=== PATIENT | male | born 1970 | race Caucasian/White ===

== ENCOUNTER → 2023-11-05 | Outpatient (CLI) | payer OTHER ==
[2023-11-05 19:04] LABS: Prostate Specific Antigen 0.46 ng/mL (0.000-3.500)
[2023-11-05 20:48] LABS: Urine Alcohol Negative (Negative); Urine Barbiturate Negative (Negative); Urine Cocaine Negative (Negative); Urine Methadone Negative (Negative); Urine Opiates Negative (Negative); Urine Phencyclidine Negative (Negative)
== END | disposition home or self-care (01) ==
LOC: LABWHC1 10:45
PROVIDERS: ATTEND Optometrist
DX: E29.1 Testicular hypofunction (principal); F90.2 Attention-deficit hyperactivity disorder, combined type
CPT/HCPCS: 36415; 80306; 84153; 84402; 84403

== ENCOUNTER → 2024-06-15 | Outpatient (CLI) | payer OTHER | END | disposition home or self-care (01) | LOC: LABWHC1 16:10 | PROVIDERS: ATTEND Optometrist | DX: E29.1 Testicular hypofunction (principal) | CPT/HCPCS: 36415; 84402; 84403 ==

== ENCOUNTER 2024-09-23 07:40 | Inpatient (IN) | payer OTHER ==
--- NOTE | 2024-09-23 08:07 | ED ---
General Adult HPI - General Chief complaint: Abdominal Pain Stated complaint: Abd pain Time Seen by Provider: 09/23/24 07:48 Source: patient, RN notes reviewed Mode of arrival: ambulatory Limitations: no limitations - History of Present Illness Initial comments: 54-year-old male presents to the emergency department for evaluation of abdominal pain. The patient reports that this been going on for 2 days. He states that it started more generally in the abdomen and then localized to the right lower quadrant. Patient reports severe pain in his right lower quadrant. He denies fever, chills. Denies any nausea, vomiting, diarrhea. Denies any prior abdominal surgeries. - Related Data Home Medications Medication Instructions Recorded Confirmed ALPRAZolam [Xanax] 0.125 mg PO ONETIME 09/23/24 09/23/24 Dextroamphetamine/Amphetamine 10 mg PO BID PRN 09/23/24 09/23/24 [Adderall] PARoxetine HCL 30 mg PO DAILY 09/23/24 09/23/24 buPROPion HCL [buPROPion HCL XL] 150 mg PO DAILY 09/23/24 09/23/24 Allergies Allergy/AdvReac Type Severity Reaction Status Date / Time No Known Allergies Allergy Verified 09/23/24 09:52 Review of Systems ROS Statement: Those systems with pertinent positive or pertinent negative responses have been documented in the HPI. ROS Other: All systems not noted in ROS Statement are negative. Past Medical History Past Medical History: No Reported History History of Any Multi-Drug Resistant Organisms: None Reported Past Surgical History: Orthopedic Surgery Past Psychological History: No Psychological Hx Reported Smoking Status: Vaper Past Alcohol Use History: Occasional Past Drug Use History: None Reported General Exam Limitations: no limitations General appearance: alert, in no apparent distress Head exam: Present: atraumatic, normocephalic, normal inspection Eye exam: Present: normal appearance, PERRL, EOMI. Absent: scleral icterus, conjunctival injection, periorbital swelling ENT exam: Present: normal exam, mucous membranes moist Respiratory exam: Present: normal lung sounds bilaterally. Absent: respiratory distress, wheezes, rales, rhonchi, stridor Cardiovascular Exam: Present: regular rate, normal rhythm, normal heart sounds. Absent: systolic murmur, diastolic murmur, rubs, gallop, clicks GI/Abdominal exam: Present: tenderness, guarding, hypoactive bowel sounds, other (Diffuse abdominal tenderness, right lower quadrant tenderness, positive Rovsing sign, positive McBurney's point tenderness) Neurological exam: Present: alert, oriented X3 Psychiatric exam: Present: normal affect, normal mood Skin exam: Present: warm, dry, intact, normal color. Absent: rash Course Vital Signs 09/23/24 09/23/24 09/23/24 07:43 09:50 12:03 Temperature 98.2 F Pulse Rate 91 102 H 105 H Respiratory 20 18 18 Rate Blood Pressure 124/72 121/66 114/70 O2 Sat by Pulse 97 99 98 Oximetry Medical Decision Making - Medical Decision Making Was pt. sent in by a medical professional or institution (, PA, SERVICE AND REPAIR SUPERVISOR, urgent care, hospital, or fpc...) When possible be specific @ -No Did you speak to anyone other than the patient for history (EMS, parent, family, police, friend...)? What history was obtained from this source @ -No Did you review nursing and triage notes (agree or disagree)? Why? @ -I reviewed and agree with nursing and triage notes Were old charts reviewed (outside hosp., previous admission, EMS record, old EKG, old radiological studies, urgent care reports/EKG's, fpc records)? Report findings @ -No old charts were reviewed Differential Diagnosis (chest pain, altered mental status, abdominal pain women, abdominal pain men, vaginal bleeding, weakness, fever, dyspnea, syncope, headache, dizziness, GI bleed, back pain, seizure, CVA, palpatations, mental health, musculoskeletal)? @ -Differential Abdominal Pain Men: Appendicitis, cholecystitis, diverticulosis, ischemic bowel, pancreatitis, hepatitis, UTI, gastroenteritis, AAA, incarcerated hernia, bowel obstruction, constipation, inflammatory bowel, hepatitis, peptic ulcer disease, splenic infarction, perforated viscus, testicular torsion, this is not meant to be an all-inclusive list EKG interpreted by me (3pts min.). @ -EKG at 811 shows sinus rhythm rate 93, WI 120, QRS 80, QTQTc [id number] X-rays interpreted by me (1pt min.). @ -None done CT interpreted by me (1pt min.). @ -CT abdomen pelvis shows acute appendicitis with surrounding fluid and gas consistent with perforation, no organized abscess U/S interpreted by me (1pt. min.). @ -None done What testing was considered but not performed or refused? (CT, X-rays, U/S, labs)? Why? @ -None What meds were considered but not given or refused? Why? @ -None Did you discuss the management of the patient with other professionals (professionals i.e. , PA, SERVICE AND REPAIR SUPERVISOR, lab, RT, psych nurse, aids social worker, slackman, teacher, search and rescue officer, case aide)? Give summary @ -Case discussed with radiology who reported critical read of acute ruptured appendicitis Case discussed with Dr. Adrian who is accepting of the admission Was smoking cessation discussed for >3mins.? @ -No Was critical care preformed (if so, how long)? @ -No Were there social determinants of health that impacted care today? How? (Homele ssness, low income, unemployed, alcoholism, drug addiction, transportation, low edu. Level, literacy, decrease access to med. care, custodial, rehab)? @ -No Was there de-escalation of care discussed even if they declined (Discuss DNR or withdrawal of care, Hospice)? DNR status @ -No What co-morbidities impacted this encounter? (DM, HTN, Smoking, COPD, CAD, Cancer, CVA, ARF, Chemo, Hep., AIDS, mental health diagnosis, sleep apnea, morbid obesity)? @ -None Was patient admitted / discharged? Hospital course, mention meds given and route, prescriptions, significant lab abnormalities, going to OR and other pertinent info. @ -Admitted. Patient presented the emergency department for evaluation of a bdominal pain. Vital signs stable. Laboratory studies show leukocytosis at 16. No significant lactic acidosis. Patient was provided IV fluid hydration in the ED along with medication for pain control. Patient underwent CT scan of the abdomen pelvis reveals a acute appendicitis with surrounding fluid and gas consistent with perforation with no organized abscess formation. Blood cultures obtained. Patient started on Zosyn. Patient will be admitted to surgery, Dr. Adrian who is accepting of the admission. Case discussed with Dr. Henry Undiagnosed new problem with uncertain prognosis? @ -No Drug Therapy requiring intensive monitoring for toxicity (Heparin, Nitro, Insulin, Cardizem)? @ -No Were any procedures done? @ -No Diagnosis/symptom? @ -Ruptured appendicitis Acute, or Chronic, or Acute on Chronic? @ -Acute Uncomplicated (without systemic symptoms) or Complicated (systemic symptoms)? @ -Complicated Side effects of treatment? @ -No Exacerbation, Progression, or Severe Exacerbation? @ -No Poses a threat to life or bodily function? How? (Chest pain, USA, MS, pneumonia, PE, COPD, DKA, ARF, appy, cholecystitis, CVA, Diverticulitis, Homicidal, Suicidal, threat to staff... and all critical care pts) @ -Moderate appendicitis - Lab Data Result diagrams: 09/23/24 08:06 09/23/24 08:06 Lab Results 09/23/24 09/23/24 09/23/24 Range/Units 08:06 08:06 08:06 WBC 16.1 H (3.8-10.6) k/uL RBC 5.13 (4.30-5.90) m/uL Hgb 16.8 (13.0-17.5) gm/dL Hct 48.9 (39.0-53.0) % MCV 95.2 (80.0-100.0) fL MCH 32.8 (25.0-35.0) pg MCHC 34.5 (31.0-37.0) g/dL RDW 12.1 (11.5-15.5) % Plt Count 244 (150-450) k/uL MPV 7.9 Neutrophils % 86 % Lymphocytes % 6 % Monocytes % 5 % Eosinophils % 1 % Basophils % 0 % Neutrophils # 13.8 H (1.3-7.7) k/uL Lymphocytes # 1.0 (1.0-4.8) k/uL Monocytes # 0.8 (0-1.0) k/uL Eosinophils # 0.2 (0-0.7) k/uL Basophils # 0.1 (0-0.2) k/uL Sodium 132 L (137-145) mmol/L Potassium 4.7 (3.5-5.1) mmol/L Chloride 98 (98-107) mmol/L Carbon Dioxide 18 L (22-30) mmol/L Anion Gap 16 mmol/L BUN 13 (9-20) mg/dL Creatinine 1.15 (0.66-1.25) mg/dL Est GFR (CKD-EPI)AfAm 84 (>60 ml/min/1.73 sqM) Est GFR (CKD-EPI)NonAf 72 (>60 ml/min/1.73 sqM) Glucose 162 H (74-99) mg/dL Plasma Lactic Acid Jae 1.5 (0.7-2.0) mmol/L Calcium 9.5 (8.4-10.2) mg/dL Total Bilirubin 1.5 H (0.2-1.3) mg/dL AST 26 (17-59) U/L ALT 27 (4-49) U/L Alkaline Phosphatase 59 (38-126) U/L Total Protein 7.4 (6.3-8.2) g/dL Albumin 5.0 (3.5-5.0) g/dL Amylase 41 (30-110) U/L Lipase 40 (23-300) U/L Disposition Clinical Impression: Ruptured appendicitis Disposition: ADMITTED IP TO THIS HOSP Condition: Stable Is patient prescribed a controlled substance at d/c from ED?: No
[2024-09-23] MEDS: SODIUM CHLORIDE 0.9% 1,000 ML IV STA (08:09)
[2024-09-23] MEDS: HYDROmorphone 0.5 MG/0.5 ML SYRINGE IVP STA (08:09)
[2024-09-23 08:12] LABS: Basophils # (A) 0.1 k/uL (0-0.2); Basophils % (A) 0 %; Eosinophils # (A) 0.2 k/uL (0-0.7); Eosinophils % (A) 1 %; HCT 48.9 % (39.0-53.0); HGB 16.8 gm/dL (13.0-17.5); Lymphocytes % (A) 6 %; MCH 32.8 pg (25.0-35.0); MCHC 34.5 g/dL (31.0-37.0); MCV 95.2 fL (80.0-100.0); Mean Platelet Volume 7.9; Monocytes # (A) 0.8 k/uL (0-1.0); Monocytes % (A) 5 %; Neutrophils # (A) 13.8 k/uL (1.3-7.7); Neutrophils % (A) 86 %; Platelet Count 244 k/uL (150-450); RBC 5.13 m/uL (4.30-5.90); RDW 12.1 % (11.5-15.5); WBC 16.1 k/uL (3.8-10.6)
[2024-09-23] MEDS: ONDANSETRON 4 MG/2 ML VIAL IVP STA (08:13)
[2024-09-23 08:25] LABS: ALT 27 U/L (4-49); African American GFR (CKD) 84 (>60 ml/min/1.73 sqM); Amylase 41 U/L (30-110); Anion Gap 16 mmol/L; Blood Urea Nitrogen 13 mg/dL (9-20); Calcium 9.5 mg/dL (8.4-10.2); Carbon Dioxide 18 mmol/L (22-30); Chloride 98 mmol/L (98-107); Glucose 162 mg/dL (74-99); Lipase 40 U/L (23-300); Non-African American GFR(CKD) 72 (>60 ml/min/1.73 sqM); Sodium 132 mmol/L (137-145); Total Bilirubin 1.5 mg/dL (0.2-1.3); Total Protein 7.4 g/dL (6.3-8.2)
[2024-09-23 08:42] LABS: AST 26 U/L (17-59); Alkaline Phosphatase 59 U/L (38-126); Potassium 4.7 mmol/L (3.5-5.1)
--- NOTE | 2024-09-23 09:32 | CT ---
EXAMINATION TYPE: CT abdomen pelvis w con CT DLP: 1162 mGycm, Automated exposure control for dose reduction was used. DATE OF EXAM: 09/23/2024 9:19 AM COMPARISON: None CLINICAL INDICATION:Male, 54 years old with history of RLQ pain; RLQ pain x2 days. TECHNIQUE: Standard CT of the abdomen and pelvis following the administration of 100 cc of Isovue 3 00 IV contrast material. Coronal and sagittal reformats were performed. FINDINGS: LOWER CHEST: Posterior dependent subsegmental atelectasis is noted. ABDOMEN LIVER: Unremarkable GALLBLADDER AND BILE DUCTS: Unremarkable. PANCREAS: Unremarkable. SPLEEN: Unremarkable. ADRENAL GLANDS: Unremarkable. KIDNEYS AND URETERS: No evidence of hydronephrosis or renal calculus. The kidneys enhance symmetrical ly. Contrast is demonstrated within both collecting systems on the delayed phase. PELVIS BLADDER: Unremarkable REPRODUCTIVE: Unremarkable. ABDOMEN & PELVIS STOMACH AND BOWEL/PERITONEUM: Stomach and duodenum are unremarkable. Distal colonic diverticulosis wi thout evidence for acute diverticulitis. Dilated appendix measuring up to 1.6 cm with surrounding inf lammatory changes and fluid tracking along the right paracolic gutter. No organized fluid collection to suggest abscess. There are a couple foci of extraluminal gas within the right lower quadrant. No d istinct appendicolith identified. No evidence of bowel obstruction. Prominent fluid-filled ascending colon. VASCULATURE: No evidence of aortic aneurysm. MUSCULOSKELETAL: No acute osseous abnormalities LYMPH NODES: No evidence for lymphadenopathy. SOFT TISSUE/ABDOMINAL WALL: Unremarkable IMPRESSION: Acute appendicitis with surrounding fluid and gas consistent with perforation. No organized abscess. Findings called to and discussed with YASMANY Cisneros at 9:29 AM on 09/23/2024. [facility], , 09/23/2024 9:30 AM
[2024-09-23] MEDS ORDERED: NALOXONE 0.4 MG/ML 1 ML VIAL IV PRN ×2 (09:43→19:37)
[2024-09-23] MEDS: SODIUM CHLORIDE 0.9% 1,000 ML IV ONE ×2 (09:45→20:15)
[2024-09-23] MEDS: HYDROmorphone 1 MG/ML 1 ML SYRINGE IVP STA ×2 (09:45→10:11)
[2024-09-23] MEDS: PIPERACILLIN-TAZOBACTAM 3.375 GM in SODIUM CHLORIDE 0.9% 100 ML IVPB STA (09:47)
[2024-09-23] MEDS: SODIUM CHLORIDE 0.9% 1,000 ML IV SCH (09:50)
--- NOTE | 2024-09-23 11:21 | P.GSHP ---
History of Present Illness H&P Date: 09/23/24 CHIEF COMPLAINT: Abdominal pain HISTORY OF PRESENT ILLNESS: This is a 54-year-old male who presented to the hospital with complaints of abdominal pain that started 2 days ago. Patient reports that his whole abdomen had been hurting and then it moved down into the right lower quadrant. However patient has had bursts of pain across the abdomen. He has been nauseated. He denies any vomiting. He has felt feverish. He had a CT scan abdomen and pelvis completed that reported acute appendicitis with surrounding fluid and gas consistent with perforation. No organized abscess. He has been mildly tachycardic. He denies any prior abdominal surgeries. PAST MEDICAL HISTORY: Hyperlipidemia PAST SURGICAL HISTORY: See list. MEDICATIONS: See list. ALLERGIES: See list. SOCIAL HISTORY: No illicit drug use. He does vape. Occasional alcohol use. REVIEW OF SYSTEMS: CONSTITUTIONAL: Denies fever or chills. HEENT: Denies blurred vision, vision changes, or eye pain. Denies hemoptysis ENDOCRINE: Denies heat or cold intolerance. CARDIOVASCULAR: Denies chest pain or pressure. RESPIRATORY: No shortness of breath. GASTROINTESTINAL: Please refer to HPI otherwise unremarkable NEURO: Denies history of seizures. PSYCH: No depression or suicidal ideation HEMATOLOGIC: Denies bleeding disorders. LYMPHATIC: The patient denies any lumps and bumps around the neck. GENITOURINARY: Denies any blood in urine or increased urinary frequency. MUSCULOSKELETAL: Denies myalgias. Denies joint swelling. Denies decreased range of motion beyond patients baseline. SKIN: Denies pruitis. Denies rash. PHYSICAL EXAM: VITAL SIGNS: Reviewed GENERAL: Well-developed in no acute distress. HEENT: No sclera icterus. Extraocular movements grossly intact. Moist buccal mucosa. Head is atraumatic, normocephalic. Hears conversational speech. No nasal drainage. NECK: Supple without lymphadenopathy. CHEST: Non-labored respirations and equal bilateral excursions. CARDIOVASCULAR: Palpable 2+ radial pulses. ABDOMEN: Soft. Nondistended. Patient is tender with palpation of the right lower quadrant. Guarding is present. Evidence of peritonitis. Pain with movement of the bed. MUSCULOSKELETAL: No clubbing or cyanosis. NEUROLOGIC: No focal or lateralizing signs. Cranial nerves II through XII grossly intact. PSYCH: Appropriate affect. Alert and oriented to person, place and time. SKIN: Well perfused. Good skin turgor. LABORATORY DATA: WBC is 16.1 Hgb 16.8 platelets 244 Sodium 132 potassium is 4.7 creatinine 1.15 Lactic acid 1.5 Total bilirubin 1.5 AST 26 ALT 27 alk phos 59 lipase 40 IMAGING: CT scan abdomen pelvis reports acute appendicitis with surrounding fluid and gas consistent with perforation. No abscess ASSESSMENT: 1. Acute appendicitis with perforation PLAN: -Patient scheduled for Robotic appendectomy today with Dr. Adrina -Keep patient n.p.o. -Continue IV antibiotics -Continue pain management. IV Tylenol added. -Continue IV fluids Physician Handmade Tile Artist note has been reviewed by physician. Signing provider agrees with the documented findings, assessment, and plan of care. Past Medical History Past Medical History: No Reported History History of Any Multi-Drug Resistant Organisms: None Reported Past Surgical History: Orthopedic Surgery Past Psychological History: No Psychological Hx Reported Smoking Status: Vaper Past Alcohol Use History: Occasional Past Drug Use History: None Reported Medications and Allergies Home Medications Medication Instructions Recorded Confirmed Type ALPRAZolam [Xanax] 0.125 mg PO ONETIME 09/23/24 09/23/24 History Dextroamphetamine/Amphetamine 10 mg PO BID PRN 09/23/24 09/23/24 History [Adderall] PARoxetine HCL 30 mg PO DAILY 09/23/24 09/23/24 History buPROPion HCL [buPROPion HCL XL] 150 mg PO DAILY 09/23/24 09/23/24 History Allergies Allergy/AdvReac Type Severity Reaction Status Date / Time No Known Allergies Allergy Verified 09/23/24 09:52 Surgical - Exam Vital Signs Temp Pulse Resp BP Pulse Ox 98.2 F 91 20 124/72 97 09/23/24 07:43 09/23/24 07:43 09/23/24 07:43 09/23/24 07:43 09/23/24 07:43 Results - Labs 09/23/24 08:06 09/23/24 08:06 Abnormal Lab Results - Last 24 Hours (Table) 09/23/24 09/23/24 Range/Units 08:06 08:06 WBC 16.1 H (3.8-10.6) k/uL Neutrophils # 13.8 H (1.3-7.7) k/uL Sodium 132 L (137-145) mmol/L Carbon Dioxide 18 L (22-30) mmol/L Glucose 162 H (74-99) mg/dL Total Bilirubin 1.5 H (0.2-1.3) mg/dL Diabetes panel 09/23/24 Range/Units 08:06 Sodium 132 L (137-145) mmol/L Potassium 4.7 (3.5-5.1) mmol/L Chloride 98 (98-107) mmol/L Carbon Dioxide 18 L (22-30) mmol/L BUN 13 (9-20) mg/dL Creatinine 1.15 (0.66-1.25) mg/dL Glucose 162 H (74-99) mg/dL Calcium 9.5 (8.4-10.2) mg/dL AST 26 (17-59) U/L ALT 27 (4-49) U/L Alkaline Phosphatase 59 (38-126) U/L Total Protein 7.4 (6.3-8.2) g/dL Albumin 5.0 (3.5-5.0) g/dL Calcium panel 09/23/24 Range/Units 08:06 Calcium 9.5 (8.4-10.2) mg/dL Albumin 5.0 (3.5-5.0) g/dL Pituitary panel 09/23/24 Range/Units 08:06 Sodium 132 L (137-145) mmol/L Potassium 4.7 (3.5-5.1) mmol/L Chloride 98 (98-107) mmol/L Carbon Dioxide 18 L (22-30) mmol/L BUN 13 (9-20) mg/dL Creatinine 1.15 (0.66-1.25) mg/dL Glucose 162 H (74-99) mg/dL Calcium 9.5 (8.4-10.2) mg/dL Adrenal panel 09/23/24 Range/Units 08:06 Sodium 132 L (137-145) mmol/L Potassium 4.7 (3.5-5.1) mmol/L Chloride 98 (98-107) mmol/L Carbon Dioxide 18 L (22-30) mmol/L BUN 13 (9-20) mg/dL Creatinine 1.15 (0.66-1.25) mg/dL Glucose 162 H (74-99) mg/dL Calcium 9.5 (8.4-10.2) mg/dL Total Bilirubin 1.5 H (0.2-1.3) mg/dL AST 26 (17-59) U/L ALT 27 (4-49) U/L Alkaline Phosphatase 59 (38-126) U/L Total Protein 7.4 (6.3-8.2) g/dL Albumin 5.0 (3.5-5.0) g/dL
[2024-09-23] MEDS ORDERED: ACETAMINOPHEN IV (For NPO) 1,000 MG in EMPTY BAG 1 BAG IVPB SCH (11:30)
[2024-09-23] MEDS: KETOROLAC 15 MG/ML 1 ML VIAL IVP PRN (11:34)
[2024-09-23] MEDS ORDERED: KETOROLAC 15 MG/ML 1 ML VIAL IVP SCH (12:00)
[2024-09-23] MEDS: ACETAMINOPHEN IV (For NPO) 1,000 MG in EMPTY BAG 1 BAG IVPB SCH (12:01)
[2024-09-23] MEDS: HYDROmorphone 1 MG/ML 1 ML SYRINGE IVP PRN (14:20)
[2024-09-23] MEDS: PIPERACILLIN-TAZOBACTAM 3.375 GM in SODIUM CHLORIDE 0.9% 100 ML IVPB SCH (16:16)
[2024-09-23] MEDS: HYDROmorphone 0.5 MG/0.5 ML SYRINGE IVP PRN (16:17)
[2024-09-23] MEDS: fentaNYL (PF) 50 MCG/ML 2 ML AMP IVP PRN (17:46)
[2024-09-23] MEDS: HEPARIN SODIUM,PORCINE 5,000 UNIT/ML 1 ML VIAL SQ STA (17:47)
[2024-09-23] MEDS: ONDANSETRON 4 MG/2 ML VIAL IVP PRN (17:47)
[2024-09-23] MEDS: DEXAMETHASONE SOD PHOSPHATE 4 MG/ML 1 ML VIAL IVP STA (17:47)
[2024-09-23] MEDS ORDERED: ROCURONIUM 10 MG/ML (5 ML VIAL) IV ONE (17:48)
[2024-09-23] MEDS ORDERED: PHENYLEPHRINE 10 MG/ML VIAL ONE (17:48)
[2024-09-23] MEDS ORDERED: KETAMINE HCL IN 0.9 % NACL 50 MG/5 ML SYRINGE ONE (17:48)
[2024-09-23] MEDS ORDERED: ceFAZolin 1 GM/50 ML BAG (PMX) ONE (17:48)
[2024-09-23] MEDS ORDERED: PROPOFOL 10 MG/ML 20 ML VIAL IV ONE (17:48)
[2024-09-23] MEDS ORDERED: GLYCOPYRROLATE 0.2 MG/ML 2 ML VIAL ONE (17:48)
[2024-09-23] MEDS ORDERED: NEOSTIGMINE 1 MG/ML 10 ML VIAL ONE (17:48)
[2024-09-23] MEDS ORDERED: SUCCINYLCHOLINE CHLORIDE 200 MG/10 ML VIAL IV ONE (17:48)
[2024-09-23] MEDS ORDERED: fentaNYL (PF) 50 MCG/ML 2 ML AMP ONE (17:48)
[2024-09-23] MEDS ORDERED: HYDROmorphone (PF) 1 MG/ML ONE (17:48)
[2024-09-23] MEDS ORDERED: LIDOCAINE 1% INJ 10MG/ML (20 ML MDV) ONE (17:48)
--- NOTE | 2024-09-23 17:50 | P.HPADDEND ---
H&P Addendum H&P Addendum Date: 09/23/24 Patient presents with fever, sepsis, peritonitis from ruptured appendicitis. Inpatient hospitalization only 7 days described. Robotic appendectomy described with placement of drains. Patient made aware that if phlegmon present, abdominal washout with placement of drains will be performed with interval appendectomy at a later time. Emergent robotic laparoscopy/appendectomy reviewed with benefits and risks.
[2024-09-23] MEDS: LACTATED RINGERS 1,000 ML IV ONE ×2 (17:51→18:27)
[2024-09-23] MEDS: SODIUM CHLORIDE 0.9% 100 ML with ceFAZolin 2,000 MG IV ONE (17:52)
[2024-09-23] MEDS: LIDOCAINE 1%-EPI 1:100,000 20 ML VIAL SQ ONE (18:24)
--- NOTE | 2024-09-23 19:45 | P.OP ---
Date of Procedure: 09/23/24 Description of Procedure: SURGEON: LES ORTEGA MD Preoperative Diagnosis: 1. Ruptured appendicitis Postoperative Diagnosis: 1. Gangrenous ruptured appendicitis with appendiceal abscess Procedure(s) Performed: 1. Robotic-assisted daVinci Xi laparoscopic lysis of adhesions over 1 hr 2. Robotic-assisted daVinci Xi laparoscopic appendectomy with drainage of periappendiceal abscess 3. Placement of EUGENE drain #19 right lower quadrant/pelvis 4. Peritoneal lavage 2000 mL normal saline Anesthesia: GETA, local Estimated Blood Loss (ml): 5 Pathology: other (appendix, aerobic and anerobic culture of peritoneal fluid from peritonitis) Condition: stable Disposition: floor Operative Findings: 1. Localized abscess over 5-mL drained right lower quadrant 2. Gangrenous ruptured purulent appendicitis including base of appendix 3. Abdomen irrigated with 2000-mL normal saline 4. EUGENE drain placed at right lower quadrant of abscess pocket drained 5. Appendix resected at base 6. Staple line hemostatic INDICATIONS: The patient is a 54-year-old female who presents with acute appendicitis including fevers and peritonitis consistent with sepsis. Surgical intervention was described in detail. Patient requested robotic-assisted technique. Benefits and risks, including infection, open surgery, and possibility for additional surgery was discussed at length. Informed consent was obtained. All questions of the patient and family were answered. DESCRIPTION: The patient was transferred to the operating room and placed in supine position. The patient had previously voided. The abdomen was then prepped and draped in standard sterile fashion as Ioban was placed along the abdomen to minimize any contamination of skin floor. After a timeout protocol was performed, attention was then brought to the left upper quadrant whereby a 0 degree 5 mm laparoscopic trocar entry was performed. The abdominal cavity was entered and insufflated to 15 mmHg pressure, which was tolerated well. Diagnostic laparoscopy demonstrated no injury to bowel, viscera or mesentery. Adhesions were confirmed of the right lower quadrant of omentum, small bowel to the abdominal wall. Localized abscess was found. Next a robotic 12-mm trocar was placed along the left upper quadrant after exchanging the 5 mm trocar. A 8 mm port was placed along the left lower quadrant and another 8-mm port left lateral abdominal wall. Ports were placed 10 cm apart from each other including 15-20 cm away from the target anatomy of the right pelvis. The patient was then placed in Trendelenburg position, at least 7 and right side up at least 7. The robotic da Jeramie XI system was primed and docked from the left side of the patient. Using atraumatic graspers and vessel sealer, the robotic system was docked and primed as described. Instruments were interchanged by the expanded function dental assistant including graspers, robotic stapler and vessel sealer. Next, attention was brought to identify the cecum. A systematic view within the abdominal cavity was started with the small bowel which was remarkable for diffuse fibrinous exudate throughout the pelvis. The base of the cecum was with inflammation and ischemia. The appendix was ruptured near the base with moderate dissection performed. The abscess of 20-mL was aspirated from the abdomen. Extensive lysis of adhesions over 1 hour was used to dissect the appendix from surrounding tissues including along the base of the cecum. Multiple 45 mm blue/green robotic staple loads were fired along the base of the appendix and incorporating the superior portion of the cecum avoiding the ileocecal valve. The staple line was hemostatic and viable. Hemostasis was checked prior to undocking the robot. The abdomen was irrigated with 2000 mL normal saline to the aspirant was clear. At the right pelvis, a suspended round ligament creating an internal hernia was identified and divided. The robot was undocked. I re-scrubbed into the case. A round #19 drain was placed via the left lower quadrant port and positioned at the right lower quadrant and pelvis. A drain stitch 2-0 nylon was placed with the bulb attached separately. The specimen was removed from the abdominal cavity with an Endo Catch bag through the 12 mm trocar at the left upper quadrant. All instruments and pneumoperitoneum were evacuated from the abdominal cavity. Local anesthetic was infiltrated to all wounds for postop analgesia. All incisions were also cleansed with diluted hydrogen peroxide. An Optifoam surgical dressing was placed over all port sites including drain site as she has elevated risk for infection. The patient had tolerated the procedure well. The patient was extubated successfully. The patient was transferred to the postanesthesia care unit in stable condition. Perforated appendicitis at base resected with 45 mm blue load x 2. Localized peritonitis. Sepsis with fever 103, tachycardia, peritonitis. EUGENE drain right lower quadrant
--- NOTE | 2024-09-23 19:54 | P.PN ---
Progress Note - Text Progress Note Date: 09/23/24 Patient Sister Viridiana Keith notified after surgery including length of stay in the hospital anticipated average 7 days. Findings of perforated appendicitis with sepsis also reviewed. Questions addressed.
[2024-09-23] MEDS: SODIUM CHLORIDE 0.9% 2,000 ML IV ONE (20:13)
[2024-09-23] MEDS: ONDANSETRON 4 MG/2 ML VIAL IVP SCH (22:41)
[2024-09-23] MEDS: HEPARIN SODIUM,PORCINE 5,000 UNIT/ML 1 ML VIAL SQ SCH (22:41)
[2024-09-24] MEDS: fentaNYL PCA 500 MCG/50 ML BAG IV SCH (04:30)
[2024-09-24] MEDS: METOCLOPRAMIDE 5 MG/ML 2 ML VIAL IVP PRN (06:28)
[2024-09-24 12:28] LABS: ALT 21 U/L (10-49); AST 25 U/L (14-35); Albumin 3.7 g/dL (3.8-4.9); Albumin/Globulin Ratio 2.06 Ratio (1.60-3.17); Alkaline Phosphatase 50 U/L (41-126); BUN/Creat Ratio 11.91 Ratio (12.00-20.00); Blood Urea Nitrogen 13.1 mg/dL (9.0-27.0); Calcium 8.1 mg/dL (8.7-10.3); Carbon Dioxide 20.5 mmol/L (21.6-31.8); Chloride 106 mmol/L (96-109); Globulin 1.8 g/dL (1.6-3.3); Glucose 159 mg/dL (70-110); Potassium 4.7 mmol/L (3.5-5.5); Sodium 138 mmol/L (135-145); Total Bilirubin 0.6 mg/dL (0.3-1.2); Total Protein 5.5 g/dL (6.2-8.2)
--- NOTE | 2024-09-24 15:37 | P.PN ---
Subjective Progress Note Date: 09/24/24 CHIEF COMPLAINT: Acute appendicitis, ruptured with sepsis HISTORY OF PRESENT ILLNESS: The patient is a 54-year-old male admitted for sepsis due to ruptured appendicitis. Patient had peritonitis. He had fevers. Fever curve has improved. He reports gaseous distention. Abdominal pain moderately proved since surgery. ROS: No reports of nausea and vomiting. No bowel movements. Resolved fevers or chills. No new chest pain. No productive sputum PHYSICAL EXAM: VITAL SIGNS: Reviewed CONSTITUTIONAL: Well developed and in no acute distress. EYES: Conjuctivae without sclera icterus. Extraocular movements grossly intact. HEAD, EARS, NOSE, THROAT: Moist buccal mucosa. Head is atraumatic, nor mocephalic. Hears conversational speech. No nasal drainage. RESPIRATORY: Non-labored respirations and equal bilateral excursions. CARDIOVASCULAR: Palpable 2+ radial pulses. ABDOMEN: Incision intact. EUGENE serosanguineous. MUSCULOSKELETAL: No gross deformity of the lower extremities noted. No clu bbing. No cyanosis. SKIN: Good skin turgor. Well perfused. NEUROLOGIC: Cranial nerves II through XII grossly intact. No focal or lateralizing signs. PSYCH: Appropriate affect. Alert and oriented to person, place and time. CLINICAL LABS: Reviewed. WBC pending. Creatinine normal. Blood sugar glucose elevated 150s. ASSESSMENT: 1. Sepsis due to ruptured perforated appendicitis 2. Depressive disorder PLAN: 1. Continue Jama-Robertson drain until minimal output less than 30 cc daily 2. Due to complex presentation of sepsis with perforated appendicitis and peritonitis, infectious ease consultation obtained. 3. Inpatient admission anticipated for 7 to 10 days. 4. Will resume home medications. 5. Patient advised to ambulate 4 times daily to decrease risk for pneumonia 6. Incentive spirometer ordered 7. Decrease IV fluids to KVO Objective - Vital Signs Vital signs: Vital Signs Temp 98.4 F 09/24/24 13:35 Pulse 97 09/24/24 13:35 Resp 20 09/24/24 13:35 BP 125/73 09/24/24 13:35 Pulse Ox 94 L 09/24/24 13:35 FiO2 Intake & Output 09/23/24 09/24/24 09/24/24 18:59 06:59 18:59 Intake Total 1800 790 440 Output Total 2430 440 Balance 1800 -1640 0 Weight 88.451 kg 88.451 kg Intake: IV 1800 250 Intake, IV Titration 100 Amount Piperacillin-Tazobactam 3 100 .375 gm In Sodium Chloride 0.9% 100 ml @ 25 mls/hr IVPB Q8HR [facility] Rx# :[id number] Oral 540 340 Output: Drainage 75 40 Left Abdomen 75 40 Urine 2350 400 Uretheral (Kinney) 400 Estimated Blood Loss 5 Other: Voiding Method Indwelling Catheter Indwelling Catheter - Labs CBC & Chem 7: 09/23/24 08:06 09/24/24 03:25 Labs: Abnormal Lab Results - Last 24 Hours (Table) 09/24/24 Range/Units 03:25 Carbon Dioxide 20.5 L (21.6-31.8) mmol/L BUN/Creatinine Ratio 11.91 L (12.00-20.00) Ratio Glucose 159 H (70-110) mg/dL Calcium 8.1 L (8.7-10.3) mg/dL Total Protein 5.5 L (6.2-8.2) g/dL Albumin 3.7 L (3.8-4.9) g/dL Microbiology - Last 24 Hours (Table) 09/23/24 19:25 Gram Stain - Preliminary Appendix
[2024-09-24] MEDS: SIMETHICONE 80 MG CHEWABLE PO SCH (16:15)
[2024-09-24] MEDS: PARoxetine 10 MG TAB PO SCH (16:15)
[2024-09-24] MEDS: buPROPion XL 150 MG TAB.ER.24H PO SCH (16:15)
[2024-09-25 09:17] LABS: Basophils # (A) 0.01 X 10*3/uL (0.00-0.10); Basophils % (A) 0.1 %; Eosinophils # (A) 0.03 X 10*3/uL (0.04-0.35); Eosinophils % (A) 0.3 %; HCT 40.7 % (39.6-50.0); HGB 13.2 g/dL (13.0-17.0); Lymphocytes # (A) 0.75 X 10*3/uL (0.90-5.00); Lymphocytes % (A) 7.6 %; MCH 31.8 pg (27.0-32.0); MCHC 32.4 g/dL (32.0-37.0); MCV 98.1 FL (80.0-97.0); Mean Platelet Volume 11.2 FL (9.5-12.2); Monocytes # (A) 0.62 X 10*3/uL (0.20-1.00); Monocytes % (A) 6.3 %; NRBC Per 100 WBC 0 X 10*3/uL (0.00-0.01); Neutrophils # (A) 8.42 X 10*3/uL (1.80-7.70); Neutrophils % (A) 85.4 %; Platelet Count 172 X 10*3/uL (140-440); RBC 4.15 X 10*6/uL (4.40-5.60); RDW 12.3 % (11.5-14.5); WBC 9.86 X 10*3/uL (4.50-10.00)
--- NOTE | 2024-09-25 09:20 | P.CONS ---
History of Present Illness - Reason for Consult Consult date: 09/24/24 Sepsis, ruptured appendicitis Requesting physician: Belinda Adrian - Chief Complaint Abdominal pain x few days - History of Present Illness Patient is a 54-year-old man with no significant past medical history presenting to the hospital for evaluation of abdominal pain this started about 3 days before presentation to hospital, the patient pain was mostly generalized throughout his abdomen but subsequent open localized to the right lower quadrant area patient was describing the pain to be sharp almost 10 out of 10 without radiation with associated nausea but no vomiting denies any diarrhea no other constipation and no urinary symptoms on presentation to the hospital patient was running a temperature of 103.3 F patient was tachycardic but not hypotensive or hypoxic no need for supplemental oxygen he did have white count of 16.1 to the left shift creatinine is 1.15 liver isms are normal except a bilirubin of 1.5 patient did have abdominal pelvis CT that has been suggestive of acute appendicitis with surrounding fluid and gas consistent with perforation patient was taken to the OR and the patient status post laparoscopic lysis of adhesion appendectomy drainage of the periappendiceal abscess patient did have operative finding of gangrenous ruptured appendicitis with appendiceal abscess patient was started on Zosyn infectious disease was consulted for further management of antibiotic therapy Review of Systems Positive point and negatives has been mentioned in the HPI, complete review of systems was performed and all other systems are negative Past Medical History Past Medical History: No Reported History History of Any Multi-Drug Resistant Organisms: None Reported Past Surgical History: Orthopedic Surgery Additional Past Surgical History / Comment(s): oral surgery Past Anesthesia/Blood Transfusion Reactions: No Reported Reaction Past Psychological History: No Psychological Hx Reported Smoking Status: Former smoker, Vaper Past Alcohol Use History: Occasional Past Drug Use History: None Reported Medications and Allergies Home Medications Medication Instructions Recorded Confirmed Type ALPRAZolam [Xanax] 0.125 mg PO ONETIME 09/23/24 09/23/24 History Dextroamphetamine/Amphetamine 10 mg PO BID PRN 09/23/24 09/23/24 History [Adderall] PARoxetine HCL 30 mg PO DAILY 09/23/24 09/23/24 History buPROPion HCL [buPROPion HCL XL] 150 mg PO DAILY 09/23/24 09/23/24 History Allergies Allergy/AdvReac Type Severity Reaction Status Date / Time No Known Allergies Allergy Verified 09/23/24 09:52 Physical Exam Vitals: Vital Signs Temp Pulse Pulse Resp BP BP Pulse Ox 09/24/24 07:06 98.4 F 77 20 107/63 94 L 09/24/24 00:55 98.4 F 83 20 100/67 94 L 09/23/24 23:36 97.2 F L 09/23/24 23:23 88 123/69 91 L 09/23/24 23:08 91 118/66 92 L 09/23/24 22:53 89 119/66 91 L 09/23/24 22:38 93 116/67 91 L 09/23/24 22:23 97 124/65 93 L 09/23/24 22:08 98 129/72 93 L 09/23/24 21:53 103 H 133/72 92 L 09/23/24 21:38 95 129/73 90 L 09/23/24 21:23 100.3 F H 96 18 124/71 91 L 09/23/24 20:35 109 H 18 112/55 94 L 09/23/24 20:10 107 H 16 121/55 94 L 09/23/24 19:55 106 H 16 109/62 98 09/23/24 19:40 99.4 F 108 H 16 128/67 97 09/23/24 17:34 103.3 F H 117 H 22 139/64 93 L 09/23/24 15:00 100 18 90/54 Intake and Output 09/23/24 09/24/24 09/24/24 22:59 06:59 14:59 Intake Total 2049 540 Output Total 255 2175 400 Balance 1795 -1635 -400 Intake: IV 2049 Oral 540 Output: Drainage 75 Left Abdomen 75 Urine 250 2100 400 Uretheral (Kinney) 400 Estimated Blood Loss 5 Other: Voiding Method Indwelling Catheter Indwelling Catheter Weight 88.451 kg GENERAL DESCRIPTION: Middle-aged male lying in bed, no distress. No tachypnea or accessory muscle of respiration use. HEENT: Shows Pallor , no scleral icterus. Oral mucous membrane is dry. No pharyngeal erythema or thrush NECK: Trachea central, no thyromegaly. LUNGS: Unlabored breathing. Clear to auscultation anteriorly. No wheeze or crackle. HEART: S1, S2, regular rate and rhythm. No loud murmur ABDOMEN: Soft, mild distention and tenderness EXTREMITIES: No edema of feet. SKIN: No rash, no masses palpable. NEUROLOGICAL: The patient is awake, alert, oriented x3, mood and affect normal. Results CBC & Chem 7: 09/25/24 03:30 09/24/24 03:25 Labs: Abnormal Lab Results - Last 24 Hours (Table) 09/24/24 Range/Units 03:25 Carbon Dioxide 20.5 L (21.6-31.8) mmol/L BUN/Creatinine Ratio 11.91 L (12.00-20.00) Ratio Glucose 159 H (70-110) mg/dL Calcium 8.1 L (8.7-10.3) mg/dL Total Protein 5.5 L (6.2-8.2) g/dL Albumin 3.7 L (3.8-4.9) g/dL Assessment and Plan (1) Peritonitis Current Visit: Yes Status: Acute Code(s): K65.9 - PERITONITIS, UNSPECIFIED SNOMED Code(s): 45293747 (2) Intra-abdominal abscess Current Visit: Yes Status: Acute Code(s): K65.1 - PERITONEAL ABSCESS SNOMED Code(s): 76450872 (3) Ruptured appendicitis Current Visit: Yes Status: Acute Code(s): K35.32 - AC APPENDICITIS W PERF, LOC PERITONITIS, & GANGR, W/O ABSCS SNOMED Code(s): 87360287 Plan: 1patient presented hospital with sepsis in this patient did have fever tachycardia elevated white count meeting currently for SIRS source is acute gangrenous ruptured appendicitis with periappendiceal abscess, will need to cover for the enteric gram-negative both aerobes and anaerobes 2-Zosyn 3.375 g every 8 hours should provide adequate empiric antibiotic coverage while waiting for the culture to finalize 3discharge antibiotic on the basis of final culture and clinical response which may or may not be IV Question concern answered We will follow on clinical condition and cultures to further adjust medication if needed Thank you for this consultation we will follow the patient along with you Dictation was produced using [employer] dictation software. please excuse any grammatical, word or spelling errors. Time with Patient: Greater than 30
--- NOTE | 2024-09-25 15:02 | P.PN ---
Subjective Progress Note Date: 09/25/24 Principal diagnosis: Reason for follow-up is sepsis gangrenous appendicitis and intra-abdominal abscess Patient is a 54-year-old man with no significant past medical history presenting to the hospital for evaluation of abdominal pain patient has been diagnosed with acute gangrenous perforated appendicitis status post laparoscopic appendectomy and drainage of the abscess. On today's evaluation that is 09/25/2024, Patient did have improvement the fever pattern with a low-grade fever of 99.4 this afternoon patient is currently on room air and denies having any shortness of breath, the patient denies any chest pain or cough, the patient did have some nausea earlier but no vomiting abdominal pain is controlled having diarrhea. Patient white count normalized to 9.86 creatinine is 1.1 abdominal culture growing Pseudomonas and E. coli Objective - Vital Signs Vital signs: Vital Signs Temp 99.4 F 09/25/24 13:27 Pulse 83 09/25/24 13:27 Resp 16 09/25/24 13:27 BP 111/58 09/25/24 13:27 Pulse Ox 95 09/25/24 13:27 FiO2 Intake & Output 09/24/24 09/25/24 09/25/24 18:59 06:59 18:59 Intake Total 1820 Output Total 490 102 120 Balance 1330 -102 -120 Intake: Intake, IV Titration 1140 Amount Piperacillin-Tazobactam 3 100 .375 gm In Sodium Chloride 0.9% 100 ml @ 25 mls/hr IVPB Q8HR [facility] Rx# :[id number] Sodium Chloride 0.9% 1, 1040 000 ml @ 130 mls/hr IV . Q7H42M [facility] Rx#:[id number] Oral 680 Output: Drainage 90 100 120 Left Abdomen 90 100 120 Urine 400 2 Uretheral (Kinney) 400 Other: Voiding Method Indwelling Catheter Toilet # Voids 2 3 1 # Bowel Movements 1 - Exam GENERAL DESCRIPTION: Middle-age male lying in bed in no distress RESPIRATORY SYSTEM: Unlabored breathing , decreased breath sounds at bases HEART: S1 S2 regular rate and rhythm , ABDOMEN: Soft , no tenderness EXTREMITIES: No edema feet - Labs CBC & Chem 7: 09/25/24 03:30 09/24/24 03:25 Labs: Abnormal Lab Results - Last 24 Hours (Table) 09/25/24 Range/Units 03:30 RBC 4.15 L (4.40-5.60) X 10*6/uL MCV 98.1 H (80.0-97.0) FL Neutrophils # 8.42 H (1.80-7.70) X 10*3/uL Lymphocytes # 0.75 L (0.90-5.00) X 10*3/uL Eosinophils # 0.03 L (0.04-0.35) X 10*3/uL Microbiology - Last 24 Hours (Table) 09/23/24 19:25 Gram Stain - Preliminary Appendix Wound Culture - Preliminary Pseudomonas aeruginosa Escherichia coli 09/23/24 09:45 Blood Culture - Preliminary Blood Assessment and Plan (1) Peritonitis Current Visit: Yes Status: Acute Code(s): K65.9 - PERITONITIS, UNSPECIFIED SNOMED Code(s): 59659061 (2) Intra-abdominal abscess Current Visit: Yes Status: Acute Code(s): K65.1 - PERITONEAL ABSCESS SNOMED Code(s): 16544150 (3) Ruptured appendicitis Current Visit: Yes Status: Acute Code(s): K35.32 - AC APPENDICITIS W PERF, LOC PERITONITIS, & GANGR, W/O ABSCS SNOMED Code(s): 72834979 Plan: 1patient presented hospital with sepsis in this patient did have fever tachycardia elevated white count meeting currently for SIRS source is acute gangrenous ruptured appendicitis with periappendiceal abscess, will need to cover for the enteric gram-negative both aerobes and anaerobes 2 patient abdominal culture currently growing Pseudomonas and E. coli with sensitivities pending. 3patient fever pattern improved white count is normalized we will continue with Zosyn while waiting for the culture to finalize Dictation was produced using [employer] dictation software. please excuse any grammatical, word or spelling errors. Time with Patient: Less than 30
--- NOTE | 2024-09-25 16:48 | P.PN ---
Subjective Progress Note Date: 09/25/24 CHIEF COMPLAINT: Acute appendicitis, ruptured with sepsis HISTORY OF PRESENT ILLNESS: The patient is a 54-year-old male admitted for sepsis due to ruptured appendicitis. He is tolerating diet. He is having bowel movements and passing flatus. Fever curve is now normalized. ROS: No reports of nausea and vomiting. Resolved fevers or chills. No new chest pain. No productive sputum PHYSICAL EXAM: VITAL SIGNS: Reviewed CONSTITUTIONAL: Well developed and in no acute distress. EYES: Conjuctivae without sclera icterus. Extraocular movements grossly intact. HEAD, EARS, NOSE, THROAT: Moist buccal mucosa. Head is atraumatic, normocephalic. Hears conversational speech. No nasal drainage. RESPIRATORY: Non-labored respirations and equal bilateral excursions. CARDIOVASCULAR: Palpable 2+ radial pulses. ABDOMEN: Incision intact. EUGENE drain serous. MUSCULOSKELETAL: No gross deformity of the lower extremities noted. No clubbing. No cyanosis. SKIN: Good skin turgor. Well perfused. NEUROLOGIC: Cranial nerves II through XII grossly intact. No focal or lateralizing signs. PSYCH: Appropriate affect. Alert and oriented to person, place and time. CLINICAL LABS: Reviewed. WBC down from 16,000-9000, normal MICRO: Demonstrates E. coli and Pseudomonas. ASSESSMENT: 1. Sepsis due to ruptured perforated appendicitis 2. Depressive disorder PLAN: 1. Patient doing remarkably well given sepsis. At this time pending sensitivities for bacterial growth. 2. Plan on removing EUGENE drain at the time of discharge. 3. Discharge pending antibiotic cultures. Objective - Vital Signs Vital signs: Vital Signs Temp 99.4 F 09/25/24 13:27 Pulse 83 09/25/24 13:27 Resp 16 09/25/24 13:27 BP 111/58 09/25/24 13:27 Pulse Ox 95 09/25/24 13:27 FiO2 Intake & Output 09/24/24 09/25/24 09/25/24 18:59 06:59 18:59 Intake Total 1820 340 Output Total 490 102 210 Balance 1330 -102 130 Intake: Intake, IV Titration 1140 100 Amount Piperacillin-Tazobactam 3 100 100 .375 gm In Sodium Chloride 0.9% 100 ml @ 25 mls/hr IVPB Q8HR [facility] Rx# :[id number] Sodium Chloride 0.9% 1, 1040 000 ml @ 130 mls/hr IV . Q7H42M [facility] Rx#:[id number] Oral 680 240 Output: Drainage 90 100 210 Left Abdomen 90 100 210 Urine 400 2 Uretheral (Kinney) 400 Other: Voiding Method Indwelling Catheter Toilet # Voids 2 3 1 # Bowel Movements 1 - Labs CBC & Chem 7: 09/25/24 03:30 09/24/24 03:25 Labs: Abnormal Lab Results - Last 24 Hours (Table) 09/25/24 Range/Units 03:30 RBC 4.15 L (4.40-5.60) X 10*6/uL MCV 98.1 H (80.0-97.0) FL Neutrophils # 8.42 H (1.80-7.70) X 10*3/uL Lymphocytes # 0.75 L (0.90-5.00) X 10*3/uL Eosinophils # 0.03 L (0.04-0.35) X 10*3/uL Microbiology - Last 24 Hours (Table) 09/23/24 19:25 Gram Stain - Preliminary Appendix Wound Culture - Preliminary Pseudomonas aeruginosa Escherichia coli 09/23/24 09:45 Blood Culture - Preliminary Blood
[2024-09-25] MEDS: ACETAMINOPHEN TAB 500 MG TAB PO SCH (17:09)
[2024-09-26 01:52] VITALS: RESP 18
[2024-09-26 09:50] VITALS: BP 127/69; PULSE 66; TEMP 98
--- NOTE | 2024-09-26 10:33 | P.PN ---
Subjective Progress Note Date: 09/26/24 CHIEF COMPLAINT: Acute appendicitis, ruptured with sepsis HISTORY OF PRESENT ILLNESS: The patient is a 54-year-old male admitted for sepsis due to ruptured appendicitis. He is doing well. No new complaints. No fevers or chills. ROS: No reports of nausea and vomiting. Resolved fevers or chills. No new chest pain. No productive sputum PHYSICAL EXAM: VITAL SIGNS: Reviewed CONSTITUTIONAL: Well developed and in no acute distress. EYES: Conjuctivae without sclera icterus. Extraocular movements grossly intact. HEAD, EARS, NOSE, THROAT: Moist buccal mucosa. Head is atraumatic, normocephalic. Hears conversational speech. No nasal drainage. RESPIRATORY: Non-labored respirations and equal bilateral excursions. CARDIOVASCULAR: Palpable 2+ radial pulses. ABDOMEN: Incision intact. EUGENE drain serous. MUSCULOSKELETAL: No gross deformity of the lower extremities noted. No clubbing. No cyanosis. SKIN: Good skin turgor. Well perfused. NEUROLOGIC: Cranial nerves II through XII grossly intact. No focal or lateralizing signs. PSYCH: Appropriate affect. Alert and oriented to person, place and time. CLINICAL LABS: Reviewed. WBC normal. MICRO: Demonstrates E. coli and Pseudomonas with sensitivities to all antibiotics ASSESSMENT: 1. Sepsis due to ruptured perforated appendicitis 2. Depressive disorder PLAN: 1. Likely discharge home with oral antibiotics pending consultation with infectious disease. 2. Discontinue EUGENE drain upon discharge Objective - Vital Signs Vital signs: Vital Signs Temp 98.0 F 09/26/24 07:11 Pulse 66 09/26/24 07:11 Resp 18 09/26/24 07:11 BP 127/69 09/26/24 07:11 Pulse Ox 93 L 09/26/24 07:11 FiO2 Intake & Output 09/25/24 09/26/24 09/26/24 18:59 06:59 18:59 Intake Total 1200 Output Total 610 1415 605 Balance 590 -1415 605 Intake: Intake, IV Titration 200 Amount Piperacillin-Tazobactam 3 200 .375 gm In Sodium Chloride 0.9% 100 ml @ 25 mls/hr IVPB Q8HR [facility] Rx# :[id number] Oral 1000 Output: Drainage 310 215 30 Left Abdomen 310 215 30 Urine 300 1200 575 Other: Voiding Method Toilet Toilet Urinal Urinal # Voids 3 # Bowel Movements 1 - Labs CBC & Chem 7: 09/25/24 03:30 09/24/24 03:25 Labs: Microbiology - Last 24 Hours (Table) 09/23/24 19:25 Anaerobic Culture - Preliminary Appendix Anaerobic Gm Negative Bacilli 09/23/24 19:25 Gram Stain - Preliminary Appendix Wound Culture - Preliminary Pseudomonas aeruginosa Escherichia coli Streptococcus anginosus 09/23/24 09:45 Blood Culture - Preliminary Blood
--- NOTE | 2024-09-26 12:29 | P.DS ---
Providers Date of admission: 09/23/24 09:58 Expected date of discharge: 09/26/24 Attending physician: Belinda Adrian Consults: 09/23/24 19:38 Consult Physician Routine Consulting Provider: [place] Roa Consult Reason/Comments: Sepsis, ruptured appendicitis, peronitis Do you want consulting provider notified?: Yes, Notify in am Primary care physician: Stated None Hospital Course: Discharge diagnosis 1. Sepsis due to ruptured perforated appendicitis 2. Depressive disorder Hospital course This is a 54-year-old male who presented with abdominal pain in the right lower quadrant x [address] scan abdomen pelvis had reported acute appendicitis with evidence of perforation. Patient is status post robotic laparoscopic lysis of adhesions and appendectomy with drainage of periappendiceal abscess. Patient's pain is controlled. He is tolerating diet. He is having bowel movements. Denies any difficulty urinating. He is up and ambulating. He is afebrile. He is stable for discharge. Physician Patient Financial Services Manager note has been reviewed by physician. Signing provider agrees with the documented findings, assessment, and plan of care. Please see additional documentation below per MD. Patient presented with perforated appendicitis with sepsis. Patient underwent appendectomy and had done remarkably well. Microbiology were consistent with sensitivities. Patient was stable for discharge. Patient Condition at Discharge: Stable Plan - Discharge Summary Discharge Rx Participant: Yes New Discharge Prescriptions: New Ciprofloxacin HCl [Cipro] 750 mg PO BID 10 Days #20 tab metroNIDAZOLE [Flagyl] 500 mg PO TID #30 tab Ibuprofen [Motrin] 600 mg PO Q8HR PRN #30 tab PRN Reason: Pain Acetaminophen Tab [Tylenol] 1,000 mg PO Q6HR PRN #30 tablet PRN Reason: Pain Continue ALPRAZolam [Xanax] 0.125 mg PO ONETIME Dextroamphetamine/Amphetamine [Adderall] 10 mg PO BID PRN PRN Reason: Anxiety PARoxetine HCL 30 mg PO DAILY buPROPion HCL [buPROPion HCL XL] 150 mg PO DAILY Discharge Medication List ALPRAZolam [Xanax] 0.125 mg PO ONETIME 09/23/24 [History] Dextroamphetamine/Amphetamine [Adderall] 10 mg PO BID PRN 09/23/24 [History] PARoxetine HCL 30 mg PO DAILY 09/23/24 [History] buPROPion HCL [buPROPion HCL XL] 150 mg PO DAILY 09/23/24 [History] Acetaminophen Tab [Tylenol] 1,000 mg PO Q6HR PRN #30 tablet 09/26/24 [Rx] Ciprofloxacin HCl [Cipro] 750 mg PO BID 10 Days #20 tab 09/26/24 [Rx] Ibuprofen [Motrin] 600 mg PO Q8HR PRN #30 tab 09/26/24 [Rx] metroNIDAZOLE [Flagyl] 500 mg PO TID #30 tab 09/26/24 [Rx] Follow up Appointment(s)/Referral(s): Belinda Adrian MD [STAFF PHYSICIAN] - 10/04/24 None,Stated [Primary Care Provider] - 1-2 days (Please call a primary care provider for follow-up appointment.) Indiana Roa MD [STAFF PHYSICIAN] - 10/03/24 3:00 pm Patient Instructions/Handouts: Laparoscopic Appendectomy (DC) Activity/Diet/Wound Care/Special Instructions: No lifting over 4 pounds in 4 weeks You May shower. No bath tub soaks for two weeks Use Tylenol and ibuprofen scheduled for the next 24-48 hours for best pain relief. Use ice along incisions for the today to prevent swelling. Discharge/Stand Alone Forms: Area PCPs Discharge Disposition: HOME SELF-CARE
--- NOTE | 2024-09-27 13:18 | P.PN ---
Subjective Progress Note Date: 09/26/24 Principal diagnosis: Reason for follow-up is sepsis gangrenous appendicitis and intra-abdominal abscess Patient is a 54-year-old man with no significant past medical history presenting to the hospital for evaluation of abdominal pain patient has been diagnosed with acute gangrenous perforated appendicitis status post laparoscopic appendectomy and drainage of the abscess. On today's evaluation that is 09/26/2024, patient has been afebrile, patient is breathing comfortably and is currently on room air, patient denies having any significant cough no chest pain, patient denies nausea vomiting diarrhea slowed down abdominal pain has improved. Patient white count 9.96 as of yesterday no CBC was done today culture with Pseudomonas and E. coli Streptococcus and anaerobe Objective - Vital Signs Vital signs: Vital Signs Temp 98.0 F 09/26/24 07:11 Pulse 66 09/26/24 07:11 Resp 18 09/26/24 07:11 BP 127/69 09/26/24 07:11 Pulse Ox 93 L 09/26/24 07:11 FiO2 Intake & Output 09/25/24 09/26/24 09/26/24 18:59 06:59 18:59 Intake Total 1200 Output Total 610 1415 605 Balance 590 -1415 -605 Intake: Intake, IV Titration 200 Amount Piperacillin-Tazobactam 3 200 .375 gm In Sodium Chloride 0.9% 100 ml @ 25 mls/hr IVPB Q8HR [facility] Rx# :[id number] Oral 1000 Output: Drainage 310 215 30 Left Abdomen 310 215 30 Urine 300 1200 575 Other: Voiding Method Toilet Toilet Urinal Urinal # Voids 3 # Bowel Movements 1 - Exam GENERAL DESCRIPTION: Middle-age male lying in bed in no distress RESPIRATORY SYSTEM: Unlabored breathing , decreased breath sounds at bases HEART: S1 S2 regular rate and rhythm , ABDOMEN: Soft , no tenderness EXTREMITIES: No edema feet - Labs CBC & Chem 7: 09/25/24 03:30 09/24/24 03:25 Labs: Microbiology - Last 24 Hours (Table) 09/23/24 19:25 Anaerobic Culture - Preliminary Appendix Anaerobic Gm Negative Bacilli 09/23/24 19:25 Gram Stain - Preliminary Appendix Wound Culture - Preliminary Pseudomonas aeruginosa Escherichia coli Streptococcus anginosus 09/23/24 09:45 Blood Culture - Preliminary Blood Assessment and Plan (1) Peritonitis Status: Acute Code(s): K65.9 - PERITONITIS, UNSPECIFIED SNOMED Code(s): 56985425 (2) Intra-abdominal abscess Status: Acute Code(s): K65.1 - PERITONEAL ABSCESS SNOMED Code(s): 20811605 (3) Ruptured appendicitis Status: Acute Code(s): K35.32 - AC APPENDICITIS W PERF, LOC PERITONITIS, & GANGR, W/O ABSCS SNOMED Code(s): 39418101 Plan: 1patient presented hospital with sepsis in this patient did have fever tachycardia elevated white count meeting currently for SIRS source is acute gangrenous ruptured appendicitis with periappendiceal abscess, will need to cover for the enteric gram-negative both aerobes and anaerobes 2 patient abdominal culture currently growing Pseudomonas and E. coli, Streptococcus and anaerobes 3patient fever pattern improved white count is normalized Patient will finish therapy with oral Cipro and Flagyl x 10 days on discharge prescription sent to the pharmacy and close outpatient follow-up Dictation was produced using [employer] dictation software. please excuse any grammatical, word or spelling errors. Time with Patient: Less than 30
== END 2024-09-26 14:23 | disposition home or self-care (01) | DRG 853 ==
LOC: EC 07:40 → 4SSUR 09:58
PROVIDERS: ADMIT Surgery Plastic and Reconstructive Surgery; ATTEND Surgery Plastic and Reconstructive Surgery
PROC: 0DN84ZZ Release Small Intestine, Percutaneous Endoscopic Approach (ICD-10-PCS; principal; 2024-09-23 13:50)
PROC: 8E0W4CZ Robotic Assisted Procedure of Trunk Region, Percutaneous Endoscopic Approach (ICD-10-PCS; principal; 2024-09-23 13:50)
PROC: 0DTJ4ZZ Resection of Appendix, Percutaneous Endoscopic Approach (ICD-10-PCS; principal; 2024-09-23 13:50)
DX: A41.9 Sepsis, unspecified organism (principal); K35.33 Acute appendicitis with perforation, localized peritonitis, and gangrene, with abscess; F32.A Depression, unspecified; K46.9 Unspecified abdominal hernia without obstruction or gangrene; B96.5 Pseudomonas (aeruginosa) (mallei) (pseudomallei) as the cause of diseases classified elsewhere; B96.20 Unspecified Escherichia coli [E. coli] as the cause of diseases classified elsewhere; K66.0 Peritoneal adhesions (postprocedural) (postinfection); E78.5 Hyperlipidemia, unspecified; F17.290 Nicotine dependence, other tobacco product, uncomplicated
CPT/HCPCS: 36415; 74177; 80053; 82150; 83036; 83605; 83690; 85025; 87040; 87070; 87075; 87077; 87186; 87205; 88304; 93005; 96361; 96365; 96366; 96367; 96375; 96376; 99285